=== PATIENT | male | born 1975 | race Caucasian/White ===

== ENCOUNTER 2024-04-09 12:48 | Outpatient (CLI) | payer OTHER, SELFPAY | END 2024-04-09 12:49 | disposition home or self-care (01) | PROVIDERS: Visit Provider Registered Nurse | DX: R10.9 Unspecified abdominal pain (principal) | CPT/HCPCS: 80053; 83690 ==

== ENCOUNTER 2024-12-06 06:11 | Outpatient (CLI) | payer BC, SELFPAY | END 2024-12-06 06:12 | disposition home or self-care (01) | PROVIDERS: Visit Provider Surgery | DX: Z53.8 Procedure and treatment not carried out for other reasons (principal) ==